=== PATIENT | female | born 1940 | race Caucasian/White ===

== ENCOUNTER 2021-07-28 13:15 | Emergency (ER) | payer MEDICARE, BC ==
[2021-07-28 14:29] LABS: ANION GAP 11.7 mmol/L (5-15); CHLORIDE,CL 101 mmol/L (98-107); SODIUM,NA 137 mmol/L (136-145)
--- NOTE | 2021-07-28 14:37 | CT ---
[id number] CT/CT Head WO IV EXAM: NONCONTRAST HEAD CT INDICATION: Dementia, bruise on head, possible fall unwitnessed. COMPARISON: None. DISCUSSION: There is mild generalized atrophy. Mild multifocal white matter hypoattenuation is nonspecific, but generally ascribed to chronic small vessel ischemia. No mass effect or midline shift. No acute hemorrhage or extra-axial fluid collection. No acute territorial infarct is identified. A limited look at the orbits and paranasal sinuses is unremarkable. IMPRESSION: 1. No acute findings. Clemente Glez MD 07/28/21 [id number] Thank you for allowing us to participate in the care of your patient.
--- NOTE | 2021-07-28 14:47 | EDM.PDOC ---
ED HPI GENERAL MEDICAL PROBLEM - General Chief Complaint: Neurological Problem Stated Complaint: CONFUSION, RIGHT KNEE BRUISE, possible head trauma Time Seen by Provider: 07/28/21 13:30 Source of Information: Reports: Patient, Provider (Dr Ibrahim) - History of Present Illness INITIAL COMMENTS - FREE TEXT/NARRATIVE: 81-year-old female resident at the [facility] in [place]. Patient's history was provided by Dr. Danna swartz. This is an 81-year-old female with dementia has been treated for a urinary tract infection with Macrobid cultures [id number] there is a group B strep. Nursing staff was reporting that they noticed a bruise over the patient's right forehead and. They are unaware of any significant trauma or fall. Patient has baseline confusion due to her dementia. She is having some difficulty with ambulation. She does complain of pain in her right knee. She is brought in today for clinical evaluation and work-up. Patient's presentation today shows she is nontoxic-appearing. She is brought in by wheelchair. Onset: Unknown/Unsure Location: Reports: Head, Lower Extremity, Right Quality: Reports: Ache Severity: Mild Improves with: Reports: Rest Worsens with: Reports: Movement Associated Symptoms: Reports: Confusion Right Knee Pain Score (Numeric/FACES): 6 - Related Data Allergies Allergy/AdvReac Type Severity Reaction Status Date / Time benzoyl peroxide Allergy Cannot Verified 11/27/14 07:28 [From Pacnex] Remember pentazocine lactate Allergy Cannot Verified 11/27/14 07:28 [From Talwin] Remember Home Meds: Home Meds Brimonidine [Alphagan P 0.1% Ophth Soln] 1 drop EYEBOTH BID 11/27/14 [History] Calcium Carbonate [Calcium] 1 tab PO BID 11/27/14 [History] Cholecalciferol (Vitamin D3) [Vitamin D] 1 tab PO DAILY 11/27/14 [History] Folic Acid 1 tab PO DAILY 11/27/14 [History] Methotrexate 30 mg PO WEEKLY 11/27/14 [History] Metoprolol Tartrate 50 mg PO DAILY 11/27/14 [History] Sertraline [Zoloft] 50 mg PO DAILY PRN 11/27/14 [History] predniSONE [Prednisone] 2.5 mg PO BID 11/27/14 [History] ED ROS GENERAL - Review of Systems Review Of Systems: See Below Constitutional: Denies: Fever, Chills HEENT: Denies: Ear Pain, Throat Pain, Throat Swelling Respiratory: Denies: Shortness of Breath Cardiovascular: Denies: Chest Pain Endocrine: Reports: No Symptoms GI/Abdominal: Denies: Abdominal Pain : Reports: No Symptoms Musculoskeletal: Reports: Joint Pain (Right knee), Joint Swelling (Right knee) Skin: Reports: No Symptoms Neurological: Reports: Confusion, Difficulty Walking, Gait Disturbance (Antalgic right knee pain). Denies: Headache, Trouble Speaking, Weakness, Change in Speech Psychiatric: Reports: Confusion (Baseline) Hematologic/Lymphatic: Reports: No Symptoms Immunologic: Reports: No Symptoms - Physical Exam Exam: See Below Exam Limited By: Altered Mental Status (Baseline) General Appearance: Alert, WD/WN, No Apparent Distress Eye Exam: Bilateral Eye: EOMI, PERRL Ears: Normal External Exam, Normal Canal, Hearing Grossly Normal, Normal TMs Nose: Normal Inspection, Normal Mucosa, No Blood Throat/Mouth: Normal Inspection, Normal Lips, Normal Gums, Normal Oropharynx, Normal Voice, No Airway Compromise Head Exam: Atraumatic, Normocephalic Neck: Normal Inspection, Supple, Non-Tender, Full Range of Motion Respiratory/Chest: No Respiratory Distress, Lungs Clear, Normal Breath Sounds, No Accessory Muscle Use, Chest Non-Tender Cardiovascular: Normal Peripheral Pulses, Regular Rate, Rhythm, No JVD, No Murmur GI/Abdominal: Normal Bowel Sounds, Soft, Non-Tender, No Organomegaly, No Distention Neuro Exam (Abbreviated): Alert, No Motor/Sensory Deficits Back Exam: Normal Inspection Extremities: Normal Inspection, Joint Swelling (Right knee), Limited Range of Motion (Right knee), Other (Patient has tenderness to palpation across the medial joint line. She lacks about 10 degrees of extension due to discomfort. She is able to flex at about 115 degrees. Knee is stable to varus valgus stresses. Crepitation is noted over patellofemoral joint. She has no pain with gentle hip range o) Psychiatric: Normal Affect, Normal Mood Skin Exam: Warm, Dry, Intact, Normal Color, No Rash Course - Vital Signs Last Recorded V/S: Last Vital Signs Temp 97.8 F 07/28/21 13:51 Pulse 67 07/28/21 13:51 Resp 18 01/09/22 13:51 BP 145/58 H 07/28/21 13:51 Pulse Ox 97 07/28/21 13:51 - Orders/Labs/Meds Orders: Active Orders 24 hr Category Date Time Status Amoxicillin/Clavulanate K [Augmentin 500 MG\125 MG] Med 07/28/21 15:15 Ordered 1 tab PO Q12HR Medication Orders Amoxicillin/Clavulanate Potassium (Amoxicillin/Clavulanate K 500-125 Mg Tab) 1 tab PO Q12HR FREDDY Labs: Laboratory Tests 07/28/21 07/28/21 Range/Units 13:45 13:50 WBC 6.80 (5.00-10.00) 10^3/uL RBC 3.40 L (3.80-5.50) 10^6/uL Hgb 11.1 L (12.0-16.0) g/dL Hct 33.9 L (37.0-47.0) % MCV 99.7 H (82.0-92.0) fL MCH 32.6 H (27.0-31.0) pg MCHC 32.7 (32.0-36.0) g/dL RDW 12.7 (11.5-14.5) % Plt Count 125 L (150-400) 10^3/uL MPV 10.1 (7.4-10.4) fL Immature Gran % (Auto) 0.6 (0.0-5.0) % Neut % (Auto) 76.0 H (50.0-70.0) % Lymph % (Auto) 15.9 L (20.0-40.0) % [place] % (Auto) 7.4 (2.0-8.0) % Eos % (Auto) 0.0 L (1.0-3.0) % Baso % (Auto) 0.1 (0.0-1.0) % Neut # (Auto) 5.17 (2.50-7.00) 10^3/uL Lymph # (Auto) 1.08 (1.00-4.00) 10^3/uL [place] # (Auto) 0.50 (0.10-0.80) 10^3/uL Eos # (Auto) 0.00 L (0.10-0.30) 10^3/uL Baso # (Auto) 0.01 (0.00-0.10) 10^3/uL Immature Gran # (Auto) 0.04 (0.00-0.50) 10^3/uL Sodium 137 (136-145) mmol/L Potassium 3.3 L (3.5-5.1) mmol/L Chloride 101 (98-107) mmol/L Carbon Dioxide 27.6 (21.0-32.0) mmol/L Anion Gap 11.7 (5-15) mmol/L BUN 14 (7-18) mg/dL Creatinine 0.84 (0.51-1.17) mg/dL Est Cr Clr Drug Dosing 40.31 mL/min Estimated GFR (MDRD) > 60 mL/min Glucose 150 H (70-140) mg/dL Calcium 8.8 (8.7-10.3) mg/dL Total Bilirubin 0.4 (0.2-1.0) mg/dL AST 34 (15-37) U/L ALT 29 (14-63) U/L Alkaline Phosphatase 97 (46-116) U/L Total Protein 6.3 L (6.4-8.2) g/dL Albumin 2.91 L (3.40-5.00) g/dL Meds: Medications Generic Name Dose Route Start Last Admin Trade Name Freq PRN Reason Stop Dose Admin Amoxicillin/Clavulanate Potassium 1 tab 07/28/21 15:15 Amoxicillin/Clavulanate K 500-125 Mg Tab PO Q12HR FREDDY - Radiology Interpretation Free Text/Narrative:: CT head without IV contrast Discussion: There is mild generalized atrophy. Mild multifocal white matter hypoattenuation is nonspecific, but generally ascribed to chronic small vessel ischemia. No mass-effect or midline shift. No acute hemorrhage or extra-axial fluid collection. No acute tentorial infarct is identified Limited look at the orbits and paranasal nasal sinuses is unremarkable Impression: No acute findings X-rays right knee 2 views Indication: Pain, swelling, limited weightbearing Discussion: Advanced lateral and patellofemoral and moderate medial compartment osteoarthritis. Mineralization in the suprapatellar recess, projecting over Hoffa's fat pad on the lateral view, and along the posterior aspect the joint is nonspecific but may represent a sequela of loose bodies. Chondrocalcinosis in the medial and lateral compartments. Small moderate joint effusion. No acute fracture or dislocation is identified. Impression: Moderate to advanced osteoarthritis Small to moderate joint effusion - Re-Assessments/Exams Free Text/Narrative Re-Assessment/Exam: 07/28/21 15:19 Patient is comfortable, pleasantly confused no acute distress. Cooperative throughout examination. Departure - Departure Time of Disposition: 15:19 Disposition: DC/Tfer to SNF 03 Condition: Good Clinical Impression: Hypopotassemia Urinary tract infection Qualifiers: Urinary tract infection type: site unspecified Hematuria presence: without hematuria Qualified Code(s): N39.0 - Urinary tract infection, site not specified Degenerative joint disease of right knee Qualifiers: Osteoarthritis type: primary Qualified Code(s): M17.11 - Unilateral primary osteoarthritis, right knee Dementia Qualifiers: Dementia type: unspecified type Dementia behavioral disturbance: without behavioral disturbance Qualified Code(s): F03.90 - Unspecified dementia without behavioral disturbance Contusion of head Qualifiers: Encounter type: initial encounter Contusion of head detail: scalp Qualified Code(s): S00.03XA - Contusion of scalp, initial encounter - Discharge Information Instructions: Knee Effusion, Urinary Tract Infection, Adult, Head Injury, Adult, [id number] Referrals: Danna Ibrahim MD [Primary Care Provider] - Forms: ED Department Discharge Care Plan Goals: 1. Patient has a UTI was currently on Macrobid cultures show group B- strep. Will discontinue the Macrobid and begin Augmentin. 2. Patient has a bruise over her right forehead. CT scan was obtained with no acute findings. 3. Patient is limping with transfers and ambulation with complaints of right knee pain. She has tenderness across the medial joint line. X-rays revealed advanced right knee DJD. Patient was offered intra-articular corticosteroid injection and has declined at this time. 4. Patient's lab work looks essentially unremarkable other than mild hypopotassemia. Patient may benefit from potassium supplement. Patient's albumin and protein also were mildly low. May benefit from's supplemental protein such as Ensure. Sepsis Event Note (ED) - Evaluation Sepsis Screening Result: No Definite Risk - Focused Exam Vital Signs: Vital Signs Temp Pulse Resp BP Pulse Ox 07/28/21 13:51 97.8 F 67 18 145/58 H 97 - My Orders Last 24 Hours: My Active Orders 07/28/21 15:15 Amoxicillin/Clavulanate K [Augmentin 500 MG\125 MG] 1 tab PO Q12HR - Assessment/Plan Last 24 Hours: My Active Orders 07/28/21 15:15 Amoxicillin/Clavulanate K [Augmentin 500 MG\125 MG] 1 tab PO Q12HR Assessment:: 1. UTI 2. Dementia 3. Head contusion/ecchymosis 4. Mild hypopotassemia Plan: 1. Patient has a UTI was currently on Macrobid cultures show group B- strep. Will discontinue the Macrobid and begin Augmentin. 2. Patient has a bruise over her right forehead. CT scan was obtained with no acute findings. 3. Patient is limping with transfers and ambulation with complaints of right knee pain. She has tenderness across the medial joint line. X-rays revealed advanced right knee DJD. Patient was offered intra-articular corticosteroid injection and has declined at this time. 4. Patient's lab work looks essentially unremarkable other than mild hypopotassemia. Patient may benefit from potassium supplement. Patient's albu min and protein also were mildly low. May benefit from's supplemental protein such as Ensure.
--- NOTE | 2021-07-28 14:49 | CR ---
[id number] RAD/RAD Knee Right 1-2V EXAM: RAD Knee Right 1-2V INDICATION: Pain, swelling, limited weight bearing. COMPARISON: None. DISCUSSION: Advanced lateral and patellofemoral and moderate medial compartment osteoarthritis. Mineralization in the suprapatellar recess, projecting over Hoffa's fat pad on the lateral view, and along the posterior aspect of the joint is nonspecific, but may represent the sequela of loose bodies. Chondrocalcinosis in the medial and lateral compartments. Small moderate joint effusion. No acute fracture or dislocation is identified. IMPRESSION: 1. Moderate to advanced osteoarthritis. 2. Small to moderate joint effusion. Clemente Glez MD 07/28/21 [id number] Thank you for allowing us to participate in the care of your patient.
[2021-07-28] MEDS ORDERED: Amoxicillin/Clavulanate K 500-125 MG Tab PO SCH (15:15)
[2021-07-28 16:57] VITALS: BP 139/48; PULSE 66
== END 2021-07-28 16:10 ==
LOC: KA.ED 13:15
DX: S00.03XA Contusion of scalp, initial encounter (principal); M17.11 Unilateral primary osteoarthritis, right knee; F03.90 Unspecified dementia, unspecified severity, without behavioral disturbance, psychotic disturbance, mood disturbance, and anxiety; N39.0 Urinary tract infection, site not specified; E87.6 Hypokalemia; Z88.8 Allergy status to other drugs, medicaments and biological substances
CPT/HCPCS: 36415; 70450; 73560-RT; 80053; 85025; 99284; 99284-25

== ENCOUNTER 2021-09-22 16:48 | Emergency (ER) | payer MEDICARE, BC ==
[2021-09-22] MEDS ORDERED: Ondansetron 4 MG/2 ML SDV IVPUSH ONE ×2 (17:11→19:06)
[2021-09-22] MEDS ORDERED: Sodium Chloride 0.9% 1,000 ML IV ONE (17:11)
[2021-09-22 17:45] LABS: ANION GAP 11.9 mmol/L (5-15); CHLORIDE,CL 104 mmol/L (98-107); SODIUM,NA 141 mmol/L (136-145)
[2021-09-22] MEDS ORDERED: Iopamidol 755 Mg/ML 75 ML Bottle IVPUSH ONE (17:51)
[2021-09-22] MEDS ORDERED: Sodium Chloride 0.9% 50 ML IV SCH (18:00)
[2021-09-22] MEDS ORDERED: HYDROmorphone 1 MG/ML Syringe IVPUSH ONE (19:06)
[2021-09-22] MEDS ORDERED: HYDROmorphone 1 MG/ML Syringe ONE (19:09)
[2021-09-22] MEDS ORDERED: Ondansetron 4 MG/2 ML SDV ONE (19:09)
[2021-09-22 19:29] VITALS: BP 131/39; PULSE 57
== END 2021-09-22 20:00 ==
LOC: KA.ED 16:48
DX: N13.2 Hydronephrosis with renal and ureteral calculous obstruction (principal); R11.2 Nausea with vomiting, unspecified; Z88.8 Allergy status to other drugs, medicaments and biological substances; Z79.899 Other long term (current) drug therapy
CPT/HCPCS: 36415; 74177; 80053; 81001; 85025; 96374; 96375; 96376; 99284; 99285-25; J1170; J2405; J7030; Q9967

== ENCOUNTER 2022-02-22 09:50 | Emergency (ER) | payer MEDICARE, BC, MEDICAID ==
[2022-02-22 10:19] VITALS: BP 141/54; PULSE 61
== END 2022-02-22 12:40 ==
LOC: KA.ED 09:50
DX: S22.31XA Fracture of one rib, right side, initial encounter for closed fracture (principal); Z88.8 Allergy status to other drugs, medicaments and biological substances; Z79.899 Other long term (current) drug therapy; X58.XXXA Exposure to other specified factors, initial encounter
CPT/HCPCS: 71101-RT; 99283

== ENCOUNTER 2022-10-30 10:01 | Emergency (ER) | payer MEDICARE, BC, MEDICAID ==
[2022-10-30 11:02] VITALS: BP 116/49; PULSE 61
== END 2022-10-30 11:50 ==
LOC: KA.ED 10:01
DX: U07.1 COVID-19 (principal); J06.9 Acute upper respiratory infection, unspecified; Z88.8 Allergy status to other drugs, medicaments and biological substances; Z79.899 Other long term (current) drug therapy
CPT/HCPCS: 71045; 99284

== ENCOUNTER 2024-01-26 17:36 | Emergency (ER) | payer MEDICARE, MEDICAID ==
[2024-01-26 18:11] VITALS: BP 154/80; PULSE 73
== END 2024-01-26 19:22 ==
LOC: KA.ED 17:36
DX: S82.431A Displaced oblique fracture of shaft of right fibula, initial encounter for closed fracture (principal); S82.51XA Displaced fracture of medial malleolus of right tibia, initial encounter for closed fracture; S93.04XA Dislocation of right ankle joint, initial encounter; X50.0XXA Overexertion from strenuous movement or load, initial encounter; Z88.8 Allergy status to other drugs, medicaments and biological substances; Z79.899 Other long term (current) drug therapy
CPT/HCPCS: 73610-RT; 99285